=== PATIENT | female | born 1955 | race Caucasian/White ===

== ENCOUNTER 2020-02-29 12:09 | Observation (INO) | payer OTHER, SELFPAY ==
[2020-02-29] VITALS (10 sets, daily range): BP systolic 124–152; BP diastolic 63–90; PULSE 61–77; RESP 15–21; TEMP 36–36.8; O2SAT 97–100; BMI 38.9
--- NOTE | ~2020-02-29 | NM_ITS ---
EXAMINATION: NM ronda stress w perfusion DATE: 03/01/2020 11:19 INDICATION: Atypical chest pain TECHNIQUE: Rest images were obtained following intravenous administration of 11.2 mCi Tc99m tetrofosm in (Myoview). The patient was infused intravenously with Lexiscan (Regadenoson). Then, 33 mCi Tc99m t etrofosmin (Myoview) was administered intravenously, and stress images were obtained. Data was recons tructed into short axis and horizontal and vertical long axis SPECT images. Gated SPECT images were a lso obtained. COMPARISON: None. FINDINGS: There is no definite reversible or fixed perfusion abnormality to suggest ischemia or infar ction. There is normal left ventricular chamber size, wall motion and ejection fraction. Left ventr icular ejection fraction measures >70%. IMPRESSION: 1. Normal myocardial perfusion at rest and during stress. 2. Left ventricular ejection fraction measuring >70%. Reviewed, dictated and finalized at location A.
--- NOTE | ~2020-02-29 | XR_ITS ---
EXAMINATION: XR chest 1V portable DATE: 02/29/2020 12:54 INDICATION: Midsternal chest pain. TECHNIQUE: A single frontal view of the chest was obtained. COMPARISON: Chest 2 views 02/20/2019 FINDINGS: The chest demonstrates clear lungs without pneumonia, pleural effusion, or pneumothorax. Th e heart size is normal. IMPRESSION: 1. No acute cardiopulmonary disease. Reviewed, dictated and finalized at location A.
--- NOTE | 2020-02-29 12:27 | ECG_ITS ---
Measurements Intervals [place] Rate: 77 P: 36 [place]: 173 QRS: -5 QRSD: 82 T: 3 QT: 377 QTc: 429 Interpretive Statements SINUS RHYTHM LOW QRS VOLTAGE IN PRECORDIAL LEADS BORDERLINE T WAVE ABNORMALITY- INFERIOR LEADS BASELINE ARTIFACT- I, II, III, AVR, AVL, AVF, V1 BORDERLINE ECG Electronically Signed On 02-29-2020 12:31:53 CDT by Mark Knight D.O.
--- NOTE | 2020-02-29 12:31 | ED.CHESTPAIN ---
HPI - Chest Pain General Chief Complaint: Chest Pain Stated Complaint: cp Time Seen by Provider: 02/29/20 12:15 Source: RN notes reviewed History of Present Illness HPI narrative: Patient presents emergency department from home for chest pain. Patient states symptoms been ongoing for the past 5 days. Pain is located in the lower midsternal chest with radiation into the left upper chest left arm. Patient states that pain is described as burning in nature. Pain is worse with activity and resolves with rest. Denies any other symptoms. Denies any fevers or chills shortness of breath abdominal pain nausea or vomiting. Patient denies any previous cardiac history. Denies any current pain Related Data Allergies Allergy/AdvReac Type Severity Reaction Status Date / Time No Known Drug Allergies Allergy Unknown Unknown Verified 02/29/20 12:31 Review of Systems Review of Systems: Narrative: Gen.: Denies fevers or chills ENT: Denies congestion Respiratory: Denies shortness of breath or cough CV: See HPI GI: Denies abdominal pain nausea, emesis or diarrhea Musculoskeletal: Denies back pain or muscle pain Neuro: Denies numbness, tingling, weakness or focal weakness Skin: Denies rash Except as documented, all other systems reviewed and negative PMFSH Past Medical History Medical History (Updated 02/29/20 @ 14:05 by Bernardo Crawford DO) Gastroesophageal reflux disease without esophagitis Hyperlipidemia LDL goal <100 Social History Social History Smoking status: Never smoker Alcohol intake: current Gender identity (if verbalized by the patient): Female Exam Narrative: Exam Narrative: APPEARANCE: No acute distress, nontoxic, resting in bed EYES: EOMI HEENT: Normocephalic, atraumatic, OMM RESPIRATORY: No respiratory distress Clear to auscultation bilaterally with no rhonchi wheezing or rales. CARDIOVASCULAR: Regular rate and rhythm without murmurs rubs or gallops. ABDOMINAL: Soft, nontender, nondistended, no rebound or guarding MUSCULOSKELETAl: Moves all extremities. No clubbing, cyanosis or edema. NEURO: Awake and alert. Following commands, speech normal, no focal deficits SKIN:: Warm, dry. No rashes lesions or abrasions PSYCHIATRIC: Normal affect/mood, Course Course Emergency Course: Discussed with More Chung for Dr. Macias presentation work-up. Agrees with admission chest pain center at this time Discussed with patient and family results of workup and diagnosis. Discussed need for admission. Patient and family understand and agree to current treatment plan Vital Signs Vital signs: Vital Signs Temperature 98.2 F 02/29/20 12:26 Pulse Rate 77 02/29/20 12:26 Respiratory Rate 16 02/29/20 12:26 Blood Pressure 152/90 H 02/29/20 12:26 Pulse Oximetry 98 02/29/20 12:26 Temperature 98.2 F 02/29/20 12:26 Pulse Rate 77 02/29/20 12:26 Respiratory Rate 16 02/29/20 12:26 Blood Pressure 152/90 H 02/29/20 12:26 Pulse Oximetry 98 02/29/20 12:26 MDM - Chest Pain Lab Data Result diagrams: 02/29/20 12:32 02/29/20 12:32 Labs: Lab Results 02/29/20 02/29/20 02/29/20 Range/Units 12:32 12:32 12:32 WBC 8.7 (4.5-10.0) K/mm3 RBC 4.94 (4.2-5.4) M/mm3 Hgb 14.1 (12.0-15.0) g/dL Hct 41.7 (37.0-47.0) % MCV 84.4 (80-100) fl MCH 28.5 (26-34) pg MCHC 33.8 (32-36) g/dl RDW 13.2 (11.5-14.5) % Plt Count 213 (150-375) k/mm3 MPV 10.3 (7.4-10.4) fl Immature Gran % (Auto) 0.5 (0-0.5) % Neut % (Auto) 63.3 (45.5-73.1) % Lymph % (Auto) 28.2 (18.3-44.2) % [place] % (Auto) 4.6 (2.6-8.5) % Eos % (Auto) 2.9 (0-4.4) % Baso % (Auto) 0.5 (0.2-1.2) % Lymph # (Auto) 2.44 (0.9-3.2) K/mm3 [place] # (Auto) 0.4 (0.1-0.6) K/mm3 Eos # (Auto) 0.3 (0-0.3) K/mm3 Baso # (Auto) 0.0 (0.0-0.1) K/mm3 Abs Immat Gran (auto) 0.04 H (0.00-0.031) K/mm3
[2020-02-29 12:39] LABS: Basophils Percent Auto 0.5 % (0.2-1.2); Eosinophils Absolute Auto 0.3 K/mm3 (0-0.3); Eosinophils Percent Auto 2.9 % (0-4.4); Hematocrit 41.7 % (37.0-47.0); Hemoglobin 14.1 g/dL (12.0-15.0); Immature Granulocyte Absolute 0.04 K/mm3 (0.00-0.031); Immature Granulocyte Percent A 0.5 % (0-0.5); Lymphocytes Absolute Auto 2.44 K/mm3 (0.9-3.2); Lymphocytes Percent Auto 28.2 % (18.3-44.2); Mean Corpuscular HGB Conc 33.8 g/dl (32-36); Mean Corpuscular Hemoglobin 28.5 pg (26-34); Mean Corpuscular Volume 84.4 fl (80-100); Mean Platelet Volume 10.3 fl (7.4-10.4); Monocytes Absolute Auto 0.4 K/mm3 (0.1-0.6); Monocytes Percent Auto 4.6 % (2.6-8.5); Neutrophils Absolute Auto 5.5 K/mm3 (1.3-6.7); Neutrophils Percent Auto 63.3 % (45.5-73.1); Platelet Count Result 213 k/mm3 (150-375); Red Blood Count 4.94 M/mm3 (4.2-5.4); Red Cell Distribution Width 13.2 % (11.5-14.5); White Blood Count 8.7 K/mm3 (4.5-10.0)
[2020-02-29 12:51] LABS: Alanine Aminotransferase 28 U/L (4-35); Albumin Level 4.5 g/dL (3.5-5.1); Alkaline Phosphatase 78 U/L (38-126); Aspartate Amino Transferase 32 U/L (14-36); Bilirubin,Total 0.6 mg/dL (0.2-1.3); Blood Urea Nitrogen 13 mg/dL (7-17); Calcium 9.2 mg/dL (8.4-10.2); Carbon Dioxide 24 mmol/L (22-30); Chloride 107 mmol/L (98-107); Estimated CRCL calculation 80 ml/min; Estimated Glomerular Filt Rate > 60; Glucose 147 mg/dL (65-105); Lipase 133 U/L (23-300); Potassium 3.8 mmol/L (3.4-5.0); Sodium 138 mmol/L (137-145)
[2020-02-29 12:53] LABS: Prothrombin Time 13.2 Seconds (11.1-14.7)
[2020-02-29 12:54] LABS: Partial Thromboplastin Time 33.5 SECONDS (22.3-36.8)
[2020-02-29 13:02] LABS: Troponin I < 0.012 ng/mL (0.000-0.034)
[2020-02-29] MEDS: ASPIRIN 81 MG CHEWABLE TABLET 324 MG PO (14:15)
[2020-02-29 14:30] LABS: Cholesterol 181 mg/dL (0-200); HDL Direct 36 mg/dL; Triglycerides 165 mg/dL (<150)
[2020-02-29 14:41] LABS: LDL Cholesterol Direct 106 mg/dL
--- NOTE | 2020-02-29 15:57 | PM.CNCAR ---
Assessment and Plan Assessment and plan (1) Chest pain: Code(s): R07.9 - Chest pain, unspecified Status: Acute Assessment and Plan: atypical. Probably GI in etiology although cannot exclude angina. Continue to rule out for myocardial infarction with serial cardiac enzymes. Keep NPO after midnight and order aLexiscan myocardial perfusion study. Will consult GI also for evaluation for possible EGD. P.r.n. nitro overnight as well as aspirin 81 mg p.o. daily until workup completely (2) Gastroesophageal reflux disease without esophagitis: Code(s): K21.9 - Gastro-esophageal reflux disease without esophagitis Status: Acute Assessment and Plan: continue PPI (3) Hyperlipidemia LDL goal <100: Code(s): E78.5 - Hyperlipidemia, unspecified Status: Acute Assessment and Plan: on statin (4) Elevated blood pressure reading: Code(s): R03.0 - Elevated blood-pressure reading, without diagnosis of hypertension Status: Acute Assessment and Plan: will start her on carvedilol 3.125 mg p.o. b.i.d. History of Present Illness History of Present Illness Consult date/time: 02/29/20 15:57 Requesting physician: Bernardo Crawford DO Consult reason: chest pain Reason For Visit: CHEST PAIN Narrative: date of service 02/29/2020: History patient is a 64-year-old female who came to hospital because of chest pain. Patient states he had she has been having chest pain of the for the past several days. She had a similar episode last year and had a stress test which was negative. She was started on a PPI and had not been having any symptoms until about 5 days ago whenever she started developed some anterior chest discomfort. It does go up into her neck and the left side of her jaw. She states that it is almost constantly there at a low level but does increase depending on what she is doing. For instance if she does some things around the house her symptoms may get worse but yet she can go on walks and does not necessarily think that worsens her chest discomfort. She states that worsened chest pain will last anywhere from 15-20 minutes up to hours at a time. Again she states she has mild discomfort there most of the time though. if spontaneously improves. At times she has taken aspirin which also seems to help. It does not radiate into her arm or back. No significant shortness breath nausea or sweatiness. She denies any syncope, presyncope, paroxysmal nocturnal dyspnea, orthopnea, edema. She does have some occasional palpitations. She called her primary care physician Dr. Rivas today who told her to go to the emergency department. Review of Systems Review of Systems: All systems reviewed & are unremarkable except as noted in HPI and below Constitutional: Constitutional: Denies weakness Eyes: Eyes: Denies blurry vision ENT: Denies tinnitus Cardiovascular: Cardiovascular: Reports chest pain Respiratory: Respiratory: Denies dyspnea Gastrointestinal: Gastrointestinal: Reports heartburn Genitourinary: Genitourinary: Denies flank pain Musculoskeletal: Musculoskeletal: Denies neck pain Integumentary/Breasts: Skin/Breast: Denies dry skin Neurologic: Denies headache(s) Psychiatric: Psychiatric: Denies anxiety and Denies confusion Endocrine: Endocrine: Denies fatigue and Denies flushing Hematologic/Lymphatic: Hematologic/Lymphatic: Denies easy bleeding and Denies easy bruising Allergic/Immunologic: Allergic/Immunologic: Denies GI upset with certain foods and Denies lip swelling PMFSH Past Medical History Medical History Gastroesophageal reflux disease without esophagitis Hyperlipidemia LDL goal <100 Family History Family History Grandparent Cerebrovascular accident Acute myocardial infarction Mother Alzheimer's dementia Social History
[2020-02-29 16:14] LABS: Troponin I < 0.012 ng/mL (0.000-0.034)
--- NOTE | 2020-02-29 17:04 | ECG_ITS ---
Measurements Intervals [place] Rate: 64 P: 26 [place]: 172 QRS: -3 QRSD: 92 T: 2 QT: 447 QTc: 464 Interpretive Statements SINUS RHYTHM LOW QRS VOLTAGE IN PRECORDIAL LEADS MINIMAL Q WAVES- INFERIOR LEADS BASELINE ARTIFACT- I, II, III BORDERLINE ECG Electronically Signed On 02-29-2020 16:57:18 CDT by Mark Knight D.O.
[2020-02-29 19:01] LABS: Troponin I < 0.012 ng/mL (0.000-0.034)
[2020-02-29] MEDS: carvediloL 3.125 MG TABLET PO (20:25)
[2020-03-01] VITALS (8 sets, daily range): BP systolic 119–132; BP diastolic 58–76; PULSE 56–72; RESP 16–18; TEMP 36.2–36.4; O2SAT 95–100
--- NOTE | 2020-03-01 04:06 | EST_ITS ---
Patient Info Name: Viri Chavez Age: 64 years : 1955 Gender: Female Ht: 67 in Wt: 248 lbs BSA: 2.36 m2 Exam Date: 03/01/2020 9:40 AM Exam Location: [facility], [place] Stress Patient Status: Inpatient Admit Date: 02/29/2020 Staff Ordering Physician: Dg Macias MD Attending Provider: Dg Macias MD Exercise Technologist: Neema Garcia RDCS Nurse: More Chung ANP, ACNP- Exam Type: CA stress ronda w NM Study Info Indications R07.89 - Other chest pain A regadenoson stress test was performed. Summary 1. Sinus bradycardia. 2. Otherwise normal ECG. 3. No abnormal ST/T wave changes with exercise. 4. Myocardial perfusion exam to be reported by radiology. Protocol: Lexiscan Stress ECG Details Stage: REST Duration (min): 7 min : 6 sec HR (bpm): 56 SBP (mmHg): 153 DBP (mmHg): 50 Stage: REST Duration (min): 25 min : 26 sec HR (bpm): 60 SBP (mmHg): 153 DBP (mmHg): 50 Stage: STAGE 1 Duration (min): 0 min : 59 sec HR (bpm): 83 SBP (mmHg): 153 DBP (mmHg): 50 Stage: RECOVERY Duration (min): 1 min : 0 sec HR (bpm): 92 SBP (mmHg): 110 DBP (mmHg): 33 Stage: RECOVERY Duration (min): 2 min : 0 sec HR (bpm): 86 SBP (mmHg): 113 DBP (mmHg): 72 Stage: RECOVERY Duration (min): 3 min : 0 sec HR (bpm): 80 SBP (mmHg): 113 DBP (mmHg): 72 Stage: RECOVERY Duration (min): 4 min : 0 sec HR (bpm): 76 SBP (mmHg): 109 DBP (mmHg): 40 Stage: RECOVERY Duration (min): 5 min : 0 sec HR (bpm): 75 SBP (mmHg): 109 DBP (mmHg): 40 Stage: RECOVERY Duration (min): 6 min : 0 sec HR (bpm): 71 SBP (mmHg): 109 DBP (mmHg): 40 Stage: RECOVERY Duration (min): 6 min : 55 sec HR (bpm): 73 SBP (mmHg): 138 DBP (mmHg): 80 Rest HR: 60 bpm Peak HR: 93 bpm Rest Sys BP: 153 mmHg Peak Sys BP: 138 mmHg Max Pred HR: 158 bpm % Max Pred HR: 59 % Target HR: 134 bpm Max RPP: 12,834 bpm*mmHg BP Response: Normal blood pressure response Termination Reason: Completed protocol Cardiac Symptoms: None Total Time: 1 min : 0 sec Rest Arias BP: 50 mmHg Peak Arias BP: 80 mmHg Total Dose: 0.4 mg Resting ECG Sinus bradycardia. Otherwise normal ECG. Stress ECG No abnormal ST/T wave changes with exercise. Arrhythmias None. Report Signatures
[2020-03-01] MEDS: ASPIRIN 81 MG CHEWABLE TABLET PO (08:40)
[2020-03-01] MEDS: PANTOPRAZOLE 40 MG TABLET PO (08:40)
[2020-03-01] MEDS: ATORVASTATIN 20 MG TABLET PO (08:40)
--- NOTE | 2020-03-01 08:55 | WPDGICN ---
Assessment and Plan Assessment and plan (1) Chest pain: Code(s): R07.9 - Chest pain, unspecified Status: Acute Assessment and Plan: Patient's chest pain is atypical. It is uncertain whether this could be GE reflux or cardiac in origin. Patient is scheduled for a cardiac stress test today. The should proceed 1st. I would continue anti-reflux measures. Will briefly increase the dose of her proton pump inhibitor. I would plan EGD electively either before discharge or this can be performed as an outpatient. (2) Gastroesophageal reflux disease without esophagitis: Code(s): K21.9 - Gastro-esophageal reflux disease without esophagitis Status: Acute Assessment and Plan: Patient has history of GE reflux. Currently not responding to current dose proton pump inhibitor pantoprazole dose will be increased to a b.i.d. dose. [place] diet is suggested. EGD can be performed as an outpatient or before discharge should she remain hospital for several days. We will follow with you. GI Consult Note Consult date/time: 03/01/20 08:55 HPI: Viri Chavez is a 64 year old female seen in evaluation at the request of cardiology service. I am asked to see the patient because of chest pain. Patient reports over the last 4 days has had substernal chest pain. She describes it variously as a pressure. Perhaps aggravated by activity. Not specifically related to diet. She does not notice it more so on lying down. She has tried no specific medications to relieve the chest pain. Patient reports that a year and half ago had chest pain and was told that she had acid reflux. No specific investigation was performed. She has been maintained on proton pump inhibitor daily since that time. She has not changed this medication recently. She denies any weight loss or bleeding. Patient states the pain does not radiate to any specific location. Past medical history otherwise noncontributory. Family history is noncontributory. she did have a colonoscopy several years ago that was unremarkable for screening purposes. Review of Systems Review of Systems: All systems reviewed & are unremarkable except as noted in HPI and below [facility] Past Medical History Medical History Gastroesophageal reflux disease without esophagitis Hyperlipidemia LDL goal <100 Family History Family History Grandparent Cerebrovascular accident Acute myocardial infarction Mother Alzheimer's dementia Social History Social History Smoking status: Never smoker Alcohol intake: current Gender identity (if verbalized by the patient): Female Meds Home Medications and Allergies Home Medications Medication Instructions Recorded Confirmed Type atorvastatin 20 mg tablet 20 mg PO DAILY #90 tablet 01/24/20 02/29/20 Rx pantoprazole 40 mg tablet,delayed 40 mg PO QAM #90 tablet 01/24/20 02/29/20 Rx release Allergies Allergy/AdvReac Type Severity Reaction Status Date / Time No Known Drug Allergies Allergy Unknown Unknown Verified 02/29/20 12:31 Vital Signs Vital Signs - 24 hr 02/29/20 12:26 02/29/20 14:34 02/29/20 14:45 Temperature 36.8 C Pulse Rate 77 71 62 Respiratory Rate 16 21 H 15 Blood Pressure 152/90 H 144/80 H 144/80 H Pulse Oximetry 98 100 100 02/29/20 15:33 02/29/20 16:00 02/29/20 19:49 Temperature 36.0 C L 36.2 C L Pulse Rate 61 65 65 Respiratory Rate 16 16 Blood Pressure 135/70 124/63 Pulse Oximetry 98 97 02/29/20 20:00 02/29/20 20:25 02/29/20 22:00 Temperature Pulse Rate 70 63 Respiratory Rate Blood Pressure Pulse Oximetry 97 02/29/20 23:57 03/01/20 00:00 03/01/20 02:00 Temperature 36.3 C L Pulse Rate 64 67 56 L Respiratory Rate 16 Blood Pressure 147/64 H Pulse Oximetry 100 03/01/20 04:00 03/01/20 06:00 Rosa
--- NOTE | 2020-03-01 09:07 | WPDGIPROGNO ---
Progress Note: A&P Additional Plan Patient comfortable this morning. No additional bleeding reported. Patient denies abdominal pain. Physical exam reveals her to be alert. Vital signs stable. Abdomen is soft and nontender with no organomegaly. Impression 1. Lower GI/rectal bleeding. Likely from hemorrhoids identified at endoscopy. And EGD was unremarkable. At present sees it appears safe to continue anticoagulation. Hemoglobin has remained stable. If bleeding were to persist hemorrhoid surgery may be required. 2. Atrial fibrillation. Subjective Date/time seen: 03/01/20 09:07 Objective Data Vital Signs Vital Signs: Vital Signs - 24 hr 02/29/20 12:26 02/29/20 14:34 02/29/20 14:45 Temperature 36.8 C Pulse Rate 77 71 62 Respiratory Rate 16 21 H 15 Blood Pressure 152/90 H 144/80 H 144/80 H Pulse Oximetry 98 100 100 02/29/20 15:33 02/29/20 16:00 02/29/20 19:49 Temperature 36.0 C L 36.2 C L Pulse Rate 61 65 65 Respiratory Rate 16 16 Blood Pressure 135/70 124/63 Pulse Oximetry 98 97 02/29/20 20:00 02/29/20 20:25 02/29/20 22:00 Temperature Pulse Rate 70 63 Respiratory Rate Blood Pressure Pulse Oximetry 97 02/29/20 23:57 03/01/20 00:00 03/01/20 02:00 Temperature 36.3 C L Pulse Rate 64 67 56 L Respiratory Rate 16 Blood Pressure 147/64 H Pulse Oximetry 100 03/01/20 04:00 03/01/20 06:00 Temperature 36.4 C L Pulse Rate 61 60 Respiratory Rate 16 Blood Pressure 119/66 Pulse Oximetry 97 Intake/Output Intake/Output: Intake & Output 02/27/20 02/28/20 02/29/20 03/01/20 23:59 23:59 23:59 23:59 Intake Total 240 400 Balance 240 400 Meds/Results Medications: Active Medications Generic Name Dose Route Start Last Admin Trade Name Freq PRN Reason Stop Dose Admin Acetaminophen 650 mg 02/29/20 14:01 Tylenol Tablet PO Q4H PRN Mild Pain (1-3) Al Hydrox/Mg Hydrox/Simethicone 30 ml 02/29/20 14:01 Mylanta PO Q6H PRN Indigestion Aspirin 81 mg 03/01/20 08:00 03/01/20 08:40 Aspirin Chewable PO 81 mg DAILY@0800 [facility] Administration Atorvastatin Calcium 20 mg 03/01/20 09:00 03/01/20 08:40 Lipitor PO 20 mg DAILY DANGELO Administration Carvedilol 3.125 mg 02/29/20 21:00 02/29/20 20:25 Coreg PO 3.125 mg Q12HR [facility] Administration Nitroglycerin 0.4 mg 02/29/20 14:01 Nitrostat Subl 0.4 Mg (1/150) SUBLINGUAL Q5MIN PRN Chest Pain Ondansetron HCl 4 mg 02/29/20 14:01 Zofran Inj IV PUSH Q6H PRN Nausea And Vomiting Pantoprazole Sodium 40 mg 03/01/20 21:00 Protonix PO Q12HR [facility] Radiology Results: ITS Impressions Chest X-Ray 02/29/20 12:55 IMPRESSION: 1. No acute cardiopulmonary disease. Labs Labs: Laboratory Results - last 24 hr 02/29/20 02/29/20 02/29/20 12:32 12:32 12:32 WBC 8.7 RBC 4.94 Hgb 14.1 Hct 41.7 MCV 84.4 MCH 28.5 MCHC 33.8 RDW 13.2 Plt Count 213 MPV 10.3 Immature Gran % (Auto) 0.5 Neut % (Auto) 63.3 Lymph % (Auto) 28.2 [place] % (Auto) 4.6 Eos % (Auto) 2.9 Baso % (Auto) 0.5 Lymph # (Auto) 2.44 [place] # (Auto) 0.4 Eos # (Auto) 0.3 Baso # (Auto) 0.0 Abs Immat Gran (auto) 0.04 H Absolute Neuts (auto) 5.5 Absolute Nucleated RBC 0.0 Nucleated RBC % 0.0 PT 13.2 INR 1.0 APTT 33.5 Sodium 138 Potassium 3.8 Chloride 107 Carbon Dioxide 24 BUN 13 Creatinine 0.80 Estim Creat Clear Calc 80 Estimated GFR > 60 Glucose 147 H Calcium 9.2 Total Bilirubin 0.6 AST 32 ALT 28 Alkaline Phosphatase 78 Troponin I < 0.012 Total Protein 7.0 Albumin 4.5 Triglycerides Cholesterol LDL Cholesterol Direct HDL Direct Lipase 133 02/29/20 02/29/20 02/29/20 12:32 15:45 18:27 WBC RBC Hgb Hct MCV MCH MCHC RDW Plt Count MPV Immature Gran % (Auto) Godwin
--- NOTE | 2020-03-01 10:17 | PM.PNCARD ---
Progress Note: A&P Assessment and Plan (1) Chest pain: Code(s): R07.9 - Chest pain, unspecified Status: Acute Assessment and Plan: Troponin negative x3. Lexiscan pending (2) Gastroesophageal reflux disease without esophagitis: Code(s): K21.9 - Gastro-esophageal reflux disease without esophagitis Status: Acute Assessment and Plan: Continue PPI Dr Wood consulted (3) Hyperlipidemia LDL goal <100: Code(s): E78.5 - Hyperlipidemia, unspecified Status: Acute Assessment and Plan: Continue statin (4) Elevated blood pressure reading: Code(s): R03.0 - Elevated blood-pressure reading, without diagnosis of hypertension Status: Acute Assessment and Plan: Continue carvedilol 3.125 mg p.o. b.i.d. Time Spent With Patient Time: Further recommendations pending the outcome of the Lexiscan. Plan discussed Dr. Macias 1020 03/01/2020 Time with patient: less than 15 minutes Subjective Date/time seen: 03/01/20 10:00 seen in stress lab Interval history: Follow up for: chest pain Date of service: 03/01/2020 Subjective: Denied chest discomfort, shortness of breath, lightheadedness or palpitations. Review of Systems Constitutional: Constitutional: Denies fatigue, Denies headache(s) and Denies weakness Eyes: Eyes: Denies blurry vision ENT: Denies headache(s), Denies lip swelling, Denies neck pain and Denies tinnitus Cardiovascular: Cardiovascular: Denies chest pain and Denies dyspnea Respiratory: Respiratory: Denies dyspnea Gastrointestinal: Gastrointestinal: Reports heartburn Genitourinary: Genitourinary: Denies flank pain Musculoskeletal: Musculoskeletal: Denies neck pain Integumentary/Breasts: Skin/Breast: Reports dry skin Neurologic: Denies confusion, Denies headache(s) and Denies weakness Psychiatric: Psychiatric: Denies anxiety and Denies confusion Endocrine: Endocrine: Denies fatigue and Denies flushing Hematologic/Lymphatic: Hematologic/Lymphatic: Denies easy bleeding and Denies easy bruising Allergic/Immunologic: Allergic/Immunologic: Denies GI upset with certain foods and Denies lip swelling Exam Narrative: Exam Narrative: alert and oriented Const: General: no acute distress; No confusion Orientation/consciousness: No confusion HENMT: General nose exam: Normal nares present Eyes: Sclera: sclerae normal Neck: Neck: supple and no JVD Resp: Auscultation: clear to auscultation bilaterally Cardio: Rate: regular rate Rhythm: regular rhythm GI: GI Palp: Yes Soft to palpation Auscultation: normal bowel sounds Skin: General skin exam: normal color Neuro: General: No confusion Cognition (Neuro): normal cognition Speech: normal speech Extrem: General: normal to inspection and no edema Psych: Mental Status: mental status grossly normal Objective Data Vital Signs Vital Signs: Vital Signs - 24 hr 02/29/20 12:26 02/29/20 14:34 02/29/20 14:45 Temperature 36.8 C Pulse Rate 77 71 62 Respiratory Rate 16 21 H 15 Blood Pressure 152/90 H 144/80 H 144/80 H Pulse Oximetry 98 100 100 02/29/20 15:33 02/29/20 16:00 02/29/20 19:49 Temperature 36.0 C L 36.2 C L Pulse Rate 61 65 65 Respiratory Rate 16 16 Blood Pressure 135/70 124/63 Pulse Oximetry 98 97 02/29/20 20:00 02/29/20 20:25 02/29/20 22:00 Temperature Pulse Rate 70 63 Respiratory Rate Blood Pressure Pulse Oximetry 97 02/29/20 23:57 03/01/20 00:00 03/01/20 02:00 Temperature 36.3 C L Pulse Rate 64 67 56 L Respiratory Rate 16 Blood Pressure 147/64 H Pulse Oximetry 100 03/01/20 04:00 03/01/20 06:00 03/01/20 08:00 Temperature 36.4 C L 36.2 C L Pulse Rate 61 60 72 Respiratory Rate 16 16 Blood Pressure 119/66 132/76 Pulse Oximetry 97 100 Intake/Output Intake/Output: Intake & Output 02/27/20 02/28/20 02/29/20 03/01/20 23:59 23:59 23:59 23:59 Intake Total 240 400 Balance 240 400 Meds/Results
[2020-03-01] MEDS: carvediloL 3.125 MG TABLET PO (12:13)
--- NOTE | 2020-03-01 13:28 | PM.DS ---
DS: Diagnosis Admitting Diagnosis Admitting Diagnosis: Chest pain, unspecified DS: Summary Hospital Course Reason for hospitalization: Evaluation of chest pain Hospital Course: This is a 64-year-old woman with who has no prior documented history of heart disease who was admitted to our service from the emergency room after she was evaluated with intermittent episodes of chest pain. She was seen by Dr. Macias felt the history was very atypical of angina. She had intermittent unpredictable nonexertional chest pain for several weeks. Physical exam, ECG and biomarkers were unremarkable. The previous medical problems include dyslipidemia and history of esophageal reflux. The patient is also significantly obese with a BMI of 38.9. The patient was evaluated with a Lexiscan nuclear stress test this morning. This was done to screen for evidence of CAD. The results are negative showing no perfusion deficits and normal left ventricular systolic function. As such the patient is being discharged home. No further evaluation such as an angiogram appears to be indicated or appropriate at this time. If she continues to have symptoms she will follow-up with her PCP Status at Discharge Functional status at discharge: independent ambulation Overall status at discharge: patient is back to baseline Time Spent with Patient Time attestation: Total time spent providing and/or coordinating discharge services: Exam Const: General: comfortable and no acute distress Other: Overweight white female appears to be comfortable cooperative in no distress of any kind HENMT: Mouth: Yes moist mucous membranes Eyes: Sclera: sclerae normal Pupils: Equal, round and reactive pupils present Neck: Neck: supple and no JVD Thyroid: thyroid normal Resp: Effort & Inspection: normal respiratory effort Auscultation: clear to auscultation bilaterally Cardio: Rate: regular rate Rhythm: regular rhythm Other: PMI is not palpable because of her size no gallop no murmur no rub GI: Auscultation: normal bowel sounds Skin: General skin exam: normal color Extrem: General: normal to inspection DS: Data Data Completed and Pending Labs on day of discharge: Labs from last 24 hours 02/29/20 02/29/20 02/29/20 18:27 15:45 12:32 Troponin I < 0.012 < 0.012 Triglycerides 165 H Cholesterol 181 LDL Cholesterol Direct 106 HDL Direct 36 Discharge Plan Discharge Attending physician on discharge: Ziggy Jackson Consulting providers: Nathan Wood Discharging Clinician: Ziggy Jackson Patient Disposition: Home, Self-Care Activity: as tolerated Diet: regular Discharge Instructions: -Activity as tolerated with precautions to avoid falls. Rise slowly from a seated and lying position. Stay hydrated. -You were started on carvedilol for your blood pressure. A prescription has been sent to your pharmacy. You will take it every 12 hours. Recommend you follow your blood pressure 3-4 times per week and take the readings to your appointment with Dr Dominique -Follow up with Dr Rivas 1-2 weeks to monitor your blood pressure -Call Dr Wood's office at [phone] to schedule upper endoscopy. He has recommeded continuing your pantoproprazole 40 mg every twelve hours (one in the morning and one in the evening) A prescription has been sent to your pharmacy. -Your stress test was negative for any ischemia (evidence of blockage). At this time you do not need Cardiology follow up. Please do not hestitate to call [facility] at [place] office ([address]) [phone] if you ever need a folllow up appointment with Dr Enrique. Stand Alone Forms: General Discharge Information Follow-up/Referrals: Benjamin Rivas MD [Primary Care Provider] - Nathan Wood MD [Physician] - Discharge Medications: New pantoprazole 40 mg Tablet,Delayed Release (/Ec) 40 m
== END 2020-03-01 13:56 | disposition home or self-care (01) ==
LOC: ANHED 14:05 → ANHIMU 14:29
PROVIDERS: Admitting Provider Internal Medicine Cardiovascular Disease; Emergency Provider Emergency Medicine; PCP Internal Medicine; Visit Provider Nurse Practitioner Adult Health
DX: R07.89 Other chest pain (principal); K21.9 Gastro-esophageal reflux disease without esophagitis; E78.5 Hyperlipidemia, unspecified; R03.0 Elevated blood-pressure reading, without diagnosis of hypertension; E66.9 Obesity, unspecified; Z68.38 Body mass index [BMI] 38.0-38.9, adult; Z79.899 Other long term (current) drug therapy
CPT/HCPCS: 36415; 71045; 78452; 80053; 80061; 83690; 84484; 85025; 85610; 85730; 93005; 93017; 99285; A9270; A9502; G0378; J2785

== ENCOUNTER 2020-08-01 13:34 | Outpatient (CLI) | payer OTHER, SELFPAY ==
--- NOTE | 2020-08-07 15:29 | P.PCNPFT_ITS ---
PFT Interpretation PFT Interpretation: DOS: 08/01/2020 REQUESTING: Dr. Benjamin Rivas REASON FOR TESTING: persistent cough, shortness of breath PULMONARY FUNCTION TESTS Results are reliable and reproducible. Spirometry: FEV1 75%, 1.84 L, mildly decreased. FVC 67% mildly decreased. Normal FEV1%. DDN78-75% is normal 90%. There is a 12% increase in FEV1 after bronchodilator, greater than 200 mL. This is statistically significant. Lung volumes: TLC 73% consistent with mild restriction. Residual volume is normal, indicating absence of air trapping. Normal airway resistance. ERV is extremely low 15 % and this may be due to increased BMI. Diffusion: DLCO 65% mildly decreased. Flow volume loop: Mild restrictive pattern. IMPRESSION: This is a mixed pattern with mild obstructive ventilatory impairment with mild restriction as well as a mild diffusion impairment. There is a good response to bronchodilator. The restriction may be due to elevated BMI. Mixed patterns may be seen in a single condition such as sarcoidosis, or in two overlapping conditions such as COPD and ILD. Clinical correlation is re commended. Fanny Victoria MD
== END 2020-08-01 13:35 | disposition home or self-care (01) ==
PROVIDERS: PCP Internal Medicine; Visit Provider Internal Medicine
DX: R05 Cough (principal)
CPT/HCPCS: 94060; 94726; 94729

== ENCOUNTER 2022-04-27 08:31 | Outpatient (CLI) | payer OTHER, SELFPAY ==
--- NOTE | ~2022-04-27 | XR_ITS ---
XR UGI w barium swallow DATE: 04/27/2022 09:19 INDICATION: Midline abdominal pain, gastroesophageal reflux TECHNIQUE: Air-contrast upper gastrointestinal series 2.5 minutes fluoroscopy time 31.649 DAP 252 images 200 CC oral barium administration COMPARISON: None FINDINGS: There is normal deglutition and esophageal peristalsis. Small reducible sliding hiatal hernia. No stricture, mucosal fold thickening, erosion, ulceration or intraluminal mass lesion of the esophagus, stomach or duodenum is detected. Surgical clip at right upper quadrant s consistent with cholecystectomy. IMPRESSION: Status post cholecystectomy Small sliding hiatal hernia Reviewed, dictated and finalized at [facility]. Reviewed, dictated and finalized at [facility].
== END 2022-04-27 08:32 | disposition home or self-care (01) ==
PROVIDERS: PCP Family Medicine; Visit Provider Nurse Practitioner
DX: R07.89 Other chest pain (principal); K44.9 Diaphragmatic hernia without obstruction or gangrene; K21.9 Gastro-esophageal reflux disease without esophagitis; Z90.49 Acquired absence of other specified parts of digestive tract
CPT/HCPCS: 74240

== ENCOUNTER 2022-11-20 15:38 | Outpatient (CLI) | payer OTHER, SELFPAY ==
--- NOTE | ~2022-11-20 | MM_ITS ---
EXAMINATION: MM screening [facility] BI w tre HISTORY: Screening mammogram TECHNIQUE: Craniocaudal and mediolateral oblique 3-D tomosynthesis images were obtained and synthetic 2-D images were generated. CAD analysis was submitted and interpreted. COMPARISON: 11/14/2019, 11/13/2014, 04/07/2006 BREAST PARENCHYMAL COMPOSITION: The breasts are almost entirely fatty. FINDINGS: No suspicious mass, calcification, or architectural distortion are identified in either claire ast to suggest malignancy. There has been no suspicious interval change. IMPRESSION: 1. No mammographic evidence of malignancy. 2. Recommend routine screening mammography in one year. BI-RADS Category 1: Negative Reviewed, dictated and finalized at [facility]. [employer]
== END 2022-11-20 15:39 | disposition home or self-care (01) ==
LOC: ANHIMG 15:40
PROVIDERS: PCP Family Medicine; Visit Provider Nurse Practitioner Family
DX: Z12.31 Encounter for screening mammogram for malignant neoplasm of breast (principal)
CPT/HCPCS: 77063; 77067